=== PATIENT | female | born 1980 | race Caucasian/White ===

== ENCOUNTER 2019-04-07 07:15 | Day surgery (SDC) | payer BC ==
--- NOTE | 2019-04-07 07:03 | PCM.PREANE ---
Preanesthetic Assessment - Anesthesia/Transfusion/Family Hx Anesthesia History: Prior Anesthesia Without Reaction Family History of Anesthesia Reaction: No Transfusion History: No Prior Transfusion(s) Intubation History: Unknown - Review of Systems General: No Symptoms, Fatigue, Chills Pulmonary: No Symptoms (ETOH: occasionally) Cardiovascular: No Symptoms Gastrointestinal: No Symptoms Neurological: No Symptoms Other: Reports: None (History of anemia), Easy Bleeding (with menstrual cycles) , Easy Bruising, Sinus Problem (seasonal allergies) - Physical Assessment NPO Status Date: 04/06/19 NPO Status Time: 21:30 Height: 1.65 m Weight: 57 kg ASA Class: 2 Mental Status: Alert & Oriented x3 Airway Class: Mallampati = 2 Dentition: Reports: Normal Dentition, Implants (left upper front), Caries Thyro-Mental Finger Breadths: 3 Mouth Opening Finger Breadths: 3 ROM/Head Extension: Full Lungs: Clear to Auscultation, Normal Respiratory Effort Cardiovascular: Regular Rate, Regular Rhythm, No Murmurs - Lab Values: Labs: 12/23/2018 Hgb: 10.4 Hct: 32.7 04/06/2019 Hgb: 12.4 Hct: 36.2 - Allergies Allergies/Adverse Reactions: Allergies Allergy/AdvReac Type Severity Reaction Status Date / Time No Known Allergies Allergy Verified 04/06/19 15:47 - Anesthesia Plan Pre-Op Medication Ordered: None - Acknowledgements Anesthesia Type Planned: General Anesthesia Pt an Appropriate Candidate for the Planned Anesthesia: Yes Alternatives and Risks of Anesthesia Discussed w Pt/Guardian: Yes Pt/Guardian Understands and Agrees with Anesthesia Plan: Yes PreAnesthesia Questionnaire HEENT History: Reports: Impaired Vision, Other (See Below) Other HEENT History: wears glasses Cardiovascular History: Reports: None Respiratory History: Reports: None Gastrointestinal History: Reports: None Genitourinary History: Reports: None [employer] History: Reports: , Other (See Below) Other OB/BYN History: menorrhagia, dysmenorrhea, x4 Musculoskeletal History: Reports: None Neurological History: Reports: None Psychiatric History: Reports: None Endocrine/Metabolic History: Reports: None Hematologic History: Reports: Anemia, Iron Deficiency Immunologic History: Reports: None Oncologic (Cancer) History: Reports: None Dermatologic History: Reports: Other (See Below) Other Dermatologic History: pitriasis rosacea - Past Surgical History Head Surgeries/Procedures: Reports: None HEENT Surgical History: Reports: Naso-Sinus Surgery, Other (See Below) Other HEENT Surgeries/Procedures: cleft lip/palette repair Cardiovascular Surgical History: Reports: None Respiratory Surgical History: Reports: None GI Surgical History: Reports: None Female Surgical History: Reports: None Male Surgical History: Reports: None Endocrine Surgical History: Reports: None Neurological Surgical History: Reports: None Musculoskeletal Surgical History: Reports: None Oncologic Surgical History: Reports: None Dermatological Surgical History: Reports: None - SUBSTANCE USE Smoking Status *Q: Never Smoker Recreational Drug Use History: No - HOME MEDS Home Medications: Home Meds . [No Known Home Meds] 04/06/19 [History] - CURRENT (IN HOUSE) MEDS Current Meds: Current Medications Lactated Ringer's (Ringers, Lactated) 1,000 mls @ 125 mls/hr IV ASDIRECTED BRODERICK Stop: 04/07/19 23:00 Lidocaine/Sodium Bicarbonate (Buffered Lidocaine 1% In Ns 8.4%) 0.25 ml IDERM ONETIME PRN PRN Reason: Prior to IV Start Stop: 04/07/19 23:00 Sodium Chloride (Saline Flush) 10 ml FLUSH ASDIRECTED PRN PRN Reason: Keep Vein Open Stop: 04/07/19 23:00
[~2019-04-07 07:15] MED LIST: Lactated Ringers 1,000 ML IV SCH; Lidocaine 1%/Sod Bicarbonate in NS 8.4% 1 ML Syringe IDERM PRN; Sodium Chloride 0.9% 10 ML Syringe FLUSH PRN
[2019-04-07] MEDS ORDERED: Ketorolac 30 MG/ML SDV ONE (07:23)
[2019-04-07] MEDS ORDERED: ceFAZolin 1 GM Vial ONE (07:23)
[2019-04-07] MEDS ORDERED: Dexamethasone 4 MG/ML 5 ML MDV ONE (07:23)
[2019-04-07] MEDS ORDERED: Lidocaine 1% 6 ML ONE (07:23)
[2019-04-07] MEDS ORDERED: Ondansetron 4 MG/2 ML SDV ONE (07:23)
[2019-04-07] MEDS ORDERED: Lactated Ringers 1,000 ML ONE (07:23)
[2019-04-07] MEDS ORDERED: HYDROmorphone 0.5 MG/0.5 ML Syringe ONE (07:24)
[2019-04-07] MEDS ORDERED: Propofol 200 MG/20 ML SDV ONE (07:24)
[2019-04-07] MEDS ORDERED: fentaNYL 100 MCG/2 ML SDV ONE (07:25)
[2019-04-07] MEDS ORDERED: Midazolam 1 MG/ML 2 ML SDV ONE (07:25)
[2019-04-07] MEDS ORDERED: Scopolamine 1.5 MG Transdermal Patch TRDERM ONE (07:35)
[2019-04-07] MEDS ORDERED: ePHEDrine/Normal Saline 25 MG/5 ML Syringe ONE (08:06)
[2019-04-07] MEDS ORDERED: ePHEDrine 50 MG/ML SDV IVPUSH PRN (08:09)
[2019-04-07] MEDS ORDERED: HYDROmorphone 0.5 MG/0.5 ML Syringe IVPUSH PRN (08:09)
[2019-04-07] MEDS ORDERED: Ondansetron 4 MG/2 ML SDV IVPUSH PRN ×2 (08:09→08:25)
[2019-04-07] MEDS ORDERED: fentaNYL 100 MCG/2 ML SDV IVPUSH PRN (08:09)
[2019-04-07] MEDS ORDERED: Haloperidol Lactate 5 MG/ML SDV IVPUSH ONE (08:09)
[2019-04-07] MEDS ORDERED: diphenhydrAMINE 50 MG/ML SDV ONE (08:10)
[2019-04-07] MEDS ORDERED: Phenylephrine/Normal Saline 100 MCG/ML 10 ML Syringe ONE (08:11)
[2019-04-07] MEDS ORDERED: Phenylephrine 1 MG in Sodium Chloride 0.9% 10 ML IV SCH (08:15)
--- NOTE | 2019-04-07 08:30 | PCM.OPNOTE ---
- General Post-Op/Procedure Note Date of Surgery/Procedure: 04/07/19 Operative Procedure(s): Hysteroscopy, NovaSure endometrial ablation Findings: Patient had moderate pelvic relaxation. Uterus was normal size. Adnexa within normal limits without masses or organomegaly. Uterus and cervix sounded to 9 cm. Uterine cavity was 6 cm in length. The endometrial width was 4.2 cm. The power on the NovaSure endometrial ablation generator was 139. Pre Op Diagnosis: 1. Abnormal uterine bleeding. 2. Menorrhagia Post-Op Diagnosis: Same Anesthesia Technique: General LMA Primary Surgeon: Casey Moya Fluid Replacement, Intraop: 600 EBL in mLs: 1 Complications: None Condition: Good Free Text/Narrative:: Surgery duration: 11 minutes Procedure: The patient is taking the operative placed in a supine position on the operating table. She received 2 g of Ancef preoperatively for infection prophylaxis and had sequential compression stockings in place for DVT prophylaxis. Patient was given general anesthesia and an LMA was placed for ventilation. She is placed in a dorsal lithotomy position and prepped and draped in usual fashion. An exam under anesthesia was performed. Findings as described above. A weighted speculum was placed in the vagina. Cervix is visualized. It was grasped anteriorly with a single-tooth tenaculum. Uterus and cervix was then sounded to a depth of 9 cm with 3 being cervical length. It is from the anterior , mid position. The cervix was dilated to entrance of a 5 mm 12 rigid hysteroscope. This was placed without problem and normal saline was used as a distending medium. The perimetria cavity was visualized. Findings as described above. NovaSure endometrial ablation was then performed. Should be noted consent was appropriately signed by the patient prior to the procedure. The cervix was dilated to allow placement of the NovaSure endometrial apparatus. The image cavities foundry 4.2 cm in width. Uterine cavity integrity check was then performed and the endometrial cavity was then ablated. Energy was 139. Ablation time was 2 minutes and 13 seconds. The array was collapsed and the apparatus was removed. Hysteroscope was then placed back into the endometrial cavity. Blood was flushed out and the findings were consistent with a ablated endometrial cavity. At this point the scope was removed. The vagina was cleared of old blood , the cervix was released and the weighted speculum was removed. Patient was returned to supine position and awakened from general anesthesia. She tolerated the procedure well and operating room in good condition.
--- NOTE | 2019-04-07 08:40 | PCM.POSTAN ---
POST ANESTHESIA ASSESSMENT - MENTAL STATUS Mental Status: Alert - VITAL SIGNS Vital Signs: Last Vital Signs Temp 36.6 C 04/07/19 08:30 Pulse 92 04/07/19 07:20 Resp 11 L 04/07/19 08:30 BP 110/67 04/07/19 08:30 Pulse Ox 98 04/07/19 08:30 - RESPIRATORY Respiratory Status: Respiratory Rate WNL, Airway Patent, O2 Saturation Stable, Supplemental Oxygen - CARDIOVASCULAR CV Status: Pulse Rate WNL, Blood Pressure Stable - GASTROINTESTINAL GI Status: No Symptoms - POST OP HYDRATION Hydration Status: Adequate & Stable
--- NOTE | 2019-04-07 09:56 | PCM48HPAN ---
Post Anesthesia Note - EVALUATION WITHIN 48HRS OF ANESTHETIC Vital Signs in Normal Range: Yes Patient Participated in Evaluation: Yes Respiratory Function Stable: Yes Airway Patent: Yes Cardiovascular Function Stable: Yes Hydration Status Stable: Yes Pain Control Satisfactory: Yes Nausea and Vomiting Control Satisfactory: Yes Mental Status Recovered: Yes Vital Signs: Last Vital Signs Temp 36.6 C 04/07/19 09:40 Pulse 69 04/07/19 09:40 Resp 16 04/07/19 09:40 BP 107/76 04/07/19 09:40 Pulse Ox 100 04/07/19 09:40
[2019-04-07] MEDS ORDERED: Ketorolac 30 MG/ML SDV IVPUSH SCH (13:30)
== END 2019-04-07 09:50 | disposition home or self-care (01) ==
LOC: JD.SDS 07:15
PROVIDERS: ATTEND Obstetrics & Gynecology
DX: N93.9 Abnormal uterine and vaginal bleeding, unspecified (principal); N92.0 Excessive and frequent menstruation with regular cycle; Z79.899 Other long term (current) drug therapy
CPT/HCPCS: 58563; 81025; A9270; J0690; J1100; J1170; J1200; J1885; J2001; J2250; J2370; J2405; J2704; J3010; J7050; J7120